=== PATIENT | male | born 1955 | race Caucasian/White ===

== ENCOUNTER 2020-08-28 19:15 | Outpatient (REF) | payer MEDICARE, SELFPAY ==
[2020-08-29 17:52] LABS: PSA, Screening 1.4 ng/mL (0.0-4.5)
== END 2020-08-28 19:35 ==
LOC: NCHCN 19:15
PROVIDERS: PCP Family Medicine; Visit Provider Internal Medicine
DX: Z12.5 Encounter for screening for malignant neoplasm of prostate (principal)
CPT/HCPCS: 84153

== ENCOUNTER 2020-12-22 21:05 | Outpatient (REF) | payer MEDICARE, SELFPAY ==
[2020-12-22 21:45] LABS: Hemoglobin A1C 5.5 % (<5.7)
[2020-12-22 22:38] LABS: ALT 27 U/L (16-63); AST 23 U/L (15-37); Albumin 3.7 g/dL (3.4-5.0); Alkaline Phosphatase 61 U/L (46-116); BUN 16 mg/dL (7-18); Bilirubin, Total 0.6 mg/dL (0.2-1.0); CREATININE 1.2 mg/dL (0.70-1.30); Calcium 8.9 mg/dL (8.5-10.1); Calculated LDL 153 mg/dL (<100); Chloride 103 mmol/L (98-107); Cholesterol 232 mg/dL (<200); Glucose 89 mg/dL (74-106); HDL Cholesterol 61 mg/dL (40-60); Potassium 4.6 mmol/L (3.5-5.1); Sodium 139 mmol/L (136-145); Total Protein 6.9 g/dL (6.4-8.2); Triglyceride 90 mg/dL (<150)
== END 2020-12-22 21:06 | disposition home or self-care (01) ==
LOC: NCHCN 21:05
PROVIDERS: PCP Family Medicine; Visit Provider Internal Medicine
DX: E78.5 Hyperlipidemia, unspecified (principal); R73.03 Prediabetes
CPT/HCPCS: 80053; 80061; 83036

== ENCOUNTER 2021-05-23 09:52 | Outpatient (REF) | payer MEDICARE, SELFPAY ==
[2021-05-23 14:53] LABS: Calculated LDL 162 mg/dL (<100); Cholesterol 241 mg/dL (<200); HDL Cholesterol 64 mg/dL (40-60); Triglyceride 79 mg/dL (<150)
== END 2021-05-23 09:53 | disposition home or self-care (01) ==
LOC: NCHCN 09:52
PROVIDERS: PCP Family Medicine; Visit Provider Internal Medicine
DX: E78.5 Hyperlipidemia, unspecified (principal)
CPT/HCPCS: 80061

== ENCOUNTER 2021-05-28 20:51 | Outpatient (REF) | payer MEDICARE, SELFPAY ==
[2021-05-28 22:32] LABS: TSH 0.77 uIU/mL (0.36-3.74)
== END 2021-05-28 20:52 | disposition home or self-care (01) ==
LOC: NCHCN 20:51
PROVIDERS: PCP Family Medicine; Visit Provider Internal Medicine
DX: E03.9 Hypothyroidism, unspecified (principal)
CPT/HCPCS: 84443

== ENCOUNTER 2021-11-19 09:27 | Outpatient (REF) | payer MEDICARE, SELFPAY ==
[2021-11-19 17:30] LABS: ALT 29 U/L (16-63); AST 23 U/L (15-37); Albumin 3.9 g/dL (3.4-5.0); Alkaline Phosphatase 58 U/L (46-116); BUN 21 mg/dL (7-18); Bilirubin, Total 0.7 mg/dL (0.2-1.0); CREATININE 1.3 mg/dL (0.70-1.30); Calcium 8.8 mg/dL (8.5-10.1); Calculated LDL 166 mg/dL (<100); Chloride 104 mmol/L (98-107); Cholesterol 239 mg/dL (<200); Estimated GFR 55.58 (mL/min/1.73m2); Glucose 110 mg/dL (74-106); HDL Cholesterol 58 mg/dL (40-60); Potassium 4.9 mmol/L (3.5-5.1); Sodium 138 mmol/L (136-145); Total Protein 7.1 g/dL (6.4-8.2); Triglyceride 77 mg/dL (<150)
== END 2021-11-19 09:28 | disposition home or self-care (01) ==
LOC: NCHCN 09:27
PROVIDERS: PCP Family Medicine; Visit Provider Internal Medicine
DX: E78.5 Hyperlipidemia, unspecified (principal); I10 Essential (primary) hypertension
CPT/HCPCS: 80053; 80061

== ENCOUNTER 2022-06-17 08:26 | Outpatient (REF) | payer MEDICARE, SELFPAY ==
[2022-06-17 14:20] LABS: Calculated LDL 178 mg/dL (<100); Cholesterol 257 mg/dL (<200); HDL Cholesterol 66 mg/dL (40-60); Triglyceride 69 mg/dL (<150)
== END 2022-06-17 08:27 | disposition home or self-care (01) ==
LOC: NCHCN 08:26
PROVIDERS: PCP Family Medicine; Visit Provider Internal Medicine
DX: E78.5 Hyperlipidemia, unspecified (principal); R73.03 Prediabetes
CPT/HCPCS: 80061; 83036

== ENCOUNTER 2022-12-16 18:20 | Outpatient (REF) | payer MEDICARE, SELFPAY ==
[2022-12-16 16:22] LABS: ALT 30 U/L (16-63); AST 30 U/L (15-37); Albumin 3.6 g/dL (3.4-5.0); Alkaline Phosphatase 60 U/L (46-116); Anion Gap 7.2 mmol/L (3-11); BUN 19 mg/dL (7-18); Bilirubin, Total 0.6 mg/dL (0.2-1.0); CO2 26.8 mmol/L (21.0-32.0); CREATININE 1.3 mg/dL (0.70-1.30); Calcium 9.2 mg/dL (8.5-10.1); Calculated LDL 175 mg/dL (<100); Chloride 103 mmol/L (98-107); Cholesterol 252 mg/dL (<200); Estimated GFR 60.96 (mL/min/1.73m2); Glucose 111 mg/dL (74-106); HDL Cholesterol 65 mg/dL (40-60); Potassium 4.9 mmol/L (3.5-5.1); Sodium 137 mmol/L (136-145); TSH 1.65 uIU/mL (0.36-3.74); Total Protein 7.2 g/dL (6.4-8.2); Triglyceride 64 mg/dL (<150)
[2022-12-16 16:26] LABS: Hemoglobin A1C 5.7 % (<5.7)
== END 2022-12-16 18:21 | disposition home or self-care (01) ==
LOC: NCHCN 18:20
PROVIDERS: PCP Family Medicine; Visit Provider Internal Medicine
DX: E03.9 Hypothyroidism, unspecified (principal); E78.5 Hyperlipidemia, unspecified; R73.03 Prediabetes; I10 Essential (primary) hypertension
CPT/HCPCS: 80053; 80061; 83036; 84443

== ENCOUNTER 2023-07-11 21:39 | Outpatient (REF) | payer MEDICARE, SELFPAY ==
[2023-07-11 14:26] LABS: HGB 14.7 g/dL (13.5-17.5); MCH 31.1 pg (27.0-33.0); MCHC 34.2 % (32.0-36.0); MCV 91 fL (80-95); Platelet Count 287 10^3/uL (130-400); RBC 4.72 10^6/uL (4.36-5.78); RDW 12.2 % (11.8-14.1); RDW-SD 40.8 fL; WBC 6.04 10^3/uL (4.4-10.8)
[2023-07-11 14:34] LABS: Anion Gap 6.6 mmol/L (3-11); BUN 19 mg/dL (7-18); CO2 28.4 mmol/L (21.0-32.0); CREATININE 1.3 mg/dL (0.70-1.30); Calcium 9.6 mg/dL (8.5-10.1); Chloride 97 mmol/L (98-107); Estimated GFR 60.96 (mL/min/1.73m2); Glucose 106 mg/dL (74-106); Potassium 4.9 mmol/L (3.5-5.1); Sodium 132 mmol/L (136-145)
[2023-07-11 14:51] LABS: Hemoglobin A1C 5.4 % (<5.7)
== END 2023-07-11 21:40 | disposition home or self-care (01) ==
LOC: NCHCN 21:39
PROVIDERS: PCP Family Medicine; Visit Provider Internal Medicine
DX: I10 Essential (primary) hypertension (principal); R73.03 Prediabetes
CPT/HCPCS: 80048; 85027; 83036

== ENCOUNTER 2024-01-07 09:33 | Outpatient (REF) | payer MEDICARE, SELFPAY ==
[2024-01-07 15:17] LABS: Hemoglobin A1C 5.6 % (<5.7)
[2024-01-07 15:18] LABS: Anion Gap 8.3 mmol/L (3-11); BUN 24 mg/dL (7-18); CO2 26.7 mmol/L (21.0-32.0); CREATININE 1.4 mg/dL (0.70-1.30); Calcium 9.3 mg/dL (8.5-10.1); Calculated LDL 108 mg/dL (<100); Chloride 101 mmol/L (98-107); Cholesterol 195 mg/dL (<200); Estimated GFR 55.43 (mL/min/1.73m2); Glucose 106 mg/dL (74-106); HDL Cholesterol 76 mg/dL (40-60); Potassium 4.9 mmol/L (3.5-5.1); Sodium 136 mmol/L (136-145); TSH 1.57 uIU/Ml (0.36-3.74); Triglyceride 56 mg/dL (<150)
== END 2024-01-07 09:34 | disposition home or self-care (01) ==
LOC: NCHCN 09:33
PROVIDERS: PCP Family Medicine; Visit Provider Internal Medicine
DX: I10 Essential (primary) hypertension (principal); R73.03 Prediabetes; E78.5 Hyperlipidemia, unspecified; E03.9 Hypothyroidism, unspecified
CPT/HCPCS: 80048; 80061; 83036; 84443

== ENCOUNTER 2024-07-16 16:56 | Outpatient (REF) | payer MEDICARE, SELFPAY ==
[2024-07-16 20:58] LABS: HCT 45.4 % (40.0-50.0); MCH 31.8 pg (27.0-33.0); MCV 96 fL (80-95); MPV 10.1 fL (8.0-11.0); Platelet Count 321 10^3/uL (130-400); RBC 4.71 10^6/uL (4.36-5.78); RDW 12.4 % (11.8-14.1); RDW-SD 44.7 fL; WBC 6.52 10^3/uL (4.4-10.8)
[2024-07-16 21:15] LABS: Hemoglobin A1C 5.6 % (<5.7)
[2024-07-16 21:32] LABS: Anion Gap 6.7 mmol/L (3-11); BUN 18 mg/dL (7-18); CO2 28.3 mmol/L (21.0-32.0); CREATININE 1.3 mg/dL (0.70-1.30); Calcium 9.6 mg/dL (8.5-10.1); Chloride 101 mmol/L (98-107); Estimated GFR 60.59 (mL/min/1.73m2); Glucose 88 mg/dL (74-106); Potassium 4.6 mmol/L (3.5-5.1); Sodium 136 mmol/L (136-145); TSH 2.92 uIU/mL (0.36-3.74)
== END 2024-07-16 16:57 | disposition home or self-care (01) ==
LOC: NCHCN 16:56
PROVIDERS: PCP Family Medicine; Visit Provider Internal Medicine
DX: R73.03 Prediabetes (principal); E03.9 Hypothyroidism, unspecified; N18.31 Chronic kidney disease, stage 3a
CPT/HCPCS: 80048; 85027; 83036; 84443

== ENCOUNTER 2025-02-11 14:53 | Outpatient (REF) | payer MEDICARE, SELFPAY ==
[2025-02-11 15:07] LABS: HCT 45.2 % (40.0-50.0); HGB 15.1 g/dL (13.5-17.5); MCH 31.3 pg (27.0-33.0); MCHC 33.4 % (32.0-36.0); MCV 94 fL (80-95); MPV 10.4 fL (8.0-11.0); Platelet Count 282 10^3/uL (130-400); RBC 4.83 10^6/uL (4.36-5.78); RDW 12.2 % (11.8-14.1); RDW-SD 42.3 fL; WBC 5.48 10^3/uL (4.4-10.8)
[2025-02-11 15:52] LABS: Calculated LDL 99 mg/dL (<100); Cholesterol 185 mg/dL (<200); HDL Cholesterol 71 mg/dL (>or=40); TSH 1.84 uIU/mL (0.36-3.74); Triglyceride 79 mg/dL (<150); Vitamin B12 325 pg/mL (193-986)
[2025-02-11 17:13] LABS: Hemoglobin A1C 5.7 % (<5.7)
[2025-02-12 03:21] LABS: ALT 30 U/L (16-63); AST 26 U/L (15-37); Alkaline Phosphatase 70 U/L (46-116); Anion Gap 10.2 mmol/L (3-11); BUN 20 mg/dL (7-18); Bilirubin, Total 0.9 mg/dL (0.2-1.0); CO2 25.8 mmol/L (21.0-32.0); CREATININE 1.2 mg/dL (0.70-1.30); Calcium 9.6 mg/dL (8.5-10.1); Chloride 102 mmol/L (98-107); Estimated GFR 66.28 (mL/min/1.73m2); Glucose 101 mg/dL (74-106); Potassium 5.2 mmol/L (3.5-5.1); Sodium 138 mmol/L (136-145); Total Protein 7.8 g/dL (6.4-8.2)
[2025-02-14 08:58] LABS: PSA, Screening 2.3 ng/mL (<=4.5)
== END 2025-02-11 14:54 | disposition home or self-care (01) ==
LOC: NCHCN 14:53
PROVIDERS: PCP Family Medicine; Visit Provider Internal Medicine
DX: N18.31 Chronic kidney disease, stage 3a (principal); R73.03 Prediabetes; R71.8 Other abnormality of red blood cells; Z12.5 Encounter for screening for malignant neoplasm of prostate
CPT/HCPCS: 80053; 80061; 84153; 85027; 82607; 83036; 84443

== ENCOUNTER 2025-08-15 10:04 | Outpatient (REF) | payer MEDICARE, SELFPAY ==
[2025-08-15 16:46] LABS: Microalb ug/mg Crea 8.3 ug/mg Cr
== END 2025-08-15 10:05 | disposition home or self-care (01) ==
LOC: NCHCN 10:04
PROVIDERS: PCP Family Medicine; Visit Provider Internal Medicine
DX: I10 Essential (primary) hypertension (principal)
CPT/HCPCS: 82043; 82570